=== PATIENT | female | born 1960 | race Caucasian/White ===

== ENCOUNTER 2017-05-07 14:18 | Emergency (ER) | payer BC ==
--- NOTE | 2017-05-07 15:20 | EDM.PDOC ---
ED HPI GENERAL MEDICAL PROBLEM - General Chief Complaint: Cardiovascular Problem Stated Complaint: FEELS FAINT AND LIKE HEART IS RACING Time Seen by Provider: 05/07/17 15:12 Source of Information: Reports: Patient, Family () History Limitations: Reports: No Limitations - History of Present Illness INITIAL COMMENTS - FREE TEXT/NARRATIVE: The patient states that she has had the sensation of intermittent heart racing and dyspnea for over a month. The symptoms recurred again today around 10:00, and did not resolve until after she arrived at the ED. Around 13:30, she developed lightheadedness and feeling clammy and hot. She also reports having bilateral hand tingling today, but denies facial tingling, throat tightness, difficulty swallowing, chest pain, abdominal pain, or the feeling of walking on rubber legs. Here in the ED, it is noted that the patient's oxygen saturation is 100% on room air. The patient does not have a PCP. Her last general physical exam was about 3-4 years ago. - Related Data Allergies Allergy/AdvReac Type Severity Reaction Status Date / Time No Known Allergies Allergy Verified 05/07/17 14:30 Home Meds: Home Meds . [No Known Home Meds] 05/07/17 [History] Past Medical History - Past Surgical History HEENT Surgical History: Reports: Oral Surgery ([place] teeth extraction) Female Surgical History: Reports: D&C (x 1), Hysterectomy, Other (See Below) (Post-hysterectomy bladder repair) Social & Family History - Tobacco Use Smoking Status *Q: Never Smoker - Alcohol Use Alcohol Use History: Yes Alcohol Use Frequency: Socially - Recreational Drug Use Recreational Drug Use: No - Living Situation & Occupation Living situation: Reports: , with Spouse Occupation: Employed (supervisor laundry) ED ROS GENERAL - Review of Systems Review Of Systems: ROS reveals no pertinent complaints other than HPI. ED EXAM, GENERAL - Physical Exam Exam: See Below Exam Limited By: No Limitations General Appearance: Alert, WD/WN, No Apparent Distress Eye Exam: Bilateral Eye: Normal Inspection Ears: Normal External Exam, Hearing Grossly Normal Nose: Normal Inspection, No Blood Throat/Mouth: Normal Inspection, Normal Lips, Normal Voice, No Airway Compromise Head: Atraumatic, Normocephalic Neck: Normal Inspection, Full Range of Motion Respiratory/Chest: No Respiratory Distress, Lungs Clear, Normal Breath Sounds, No Accessory Muscle Use Cardiovascular: Normal Peripheral Pulses, Regular Rate, Rhythm, No Gallop, No JVD, No Murmur, No Rub Peripheral Pulses: 4+: Radial (L), Radial (R) GI/Abdominal: Normal Bowel Sounds, Soft, Non-Tender, No Organomegaly, No Distention, No Abnormal Bruit, No Mass (Female) Exam: Deferred Rectal (Female) Exam: Deferred Back Exam: Normal Inspection, Full Range of Motion, NT Extremities: Normal Inspection, Normal Range of Motion, No Pedal Edema, Normal Capillary Refill Neurological: Alert, Oriented, Normal Cognition, No Motor/Sensory Deficits Psychiatric: Normal Affect, Anxious Skin Exam: Warm, Dry, Intact, Normal Color, No Rash EKG INTERPRETATION EKG Date: 05/07/17 Time: 14:31 Rhythm: NSR Rate (Beats/Min): 93 [place]: Normal P-Wave: Present QRS: Normal ST-T: Normal QT: Normal Comparison: NA - No Prior EKG Course - Vital Signs Last Recorded V/S: Last Vital Signs Temp 36.5 C 05/07/17 14:31 Pulse 94 05/07/17 14:31 Resp 20 05/07/17 14:31 BP 137/98 H 05/07/17 14:31 Pulse Ox 100 05/07/17 14:31 Orthostatic Blood Pressure [ 135/89 Sitting] Orthostatic Blood Pressure [ 128/83 Standing] Orthostatic Blood Pressure [ 135/83 Supine] - Orders/Labs/Meds Labs: Laboratory Tests 05/07/17 05/07/17 05/07/17 Range/Units 14:30 14:30 14:30 WBC 9.13 (3.98-10.04) K/mm3 RBC 5.37 H (3.98-5.22) M/mm3 Hgb 15.7 (11.2-15.7) gm/L Hct 47.0 H (34.1-44.9) % MCV 87.5 (79.4-94.8) fl MCH 29.2 (25.6-32.2) pg MCHC 33.4 (32.2-35.5) g/dl RDW Std Deviation 42.9 (36.4-46.3) fL Plt Count 301 (182-369) K/mm3 MPV 11.0 (9.4-12.3) fl Neutrophils % (Manual) 60 (40-60) % Band Neutrophils % 0 (0-10) % Lymphocytes % (Manual) 35 (20-40) % Atypical Lymphs % 0 % Monocytes % (Manual) 4 (2-10) % Eosinophils % (Manual) 0 L (0.7-5.8) % Basophils % (Manual) 1 (0.1-1.2) Platelet Estimate Adequate Plt Morphology Comment Normal RBC Morph Comment Normal PT 9.9 (8.0-13.0) SECONDS INR 0.93 APTT 29 (22-36) SECONDS D-Dimer, Quantitative 0.25 (0.19-0.59) mg/L Puncture Site ABG pH (7.35-7.45) ABG pCO2 (35.0-45.0) mmHg ABG pO2 (80.0-100.0) mmHg ABG HCO3 (22.0-26.0) meq/L ABG O2 Saturation (96.0-97.0) % ABG Base Excess (-2-2.0) Neeraj Test A-a Gradient mmHg O2 Delivery Device FiO2 (21.00-100.00) % Sodium 142 (136-145) mEq/L Potassium 3.5 (3.5-5.1) mEq/L Chloride 102 (98-107) mEq/L Carbon Dioxide 26 (21-32) mEq/L Anion Gap 17.5 H (5-15) BUN 13 (7-18) mg/dL Creatinine 0.9 (0.55-1.02) mg/dL Est Cr Clr Drug Dosing 70.41 mL/min Estimated GFR (MDRD) > 60 (>60) mL/min BUN/Creatinine Ratio 14.4 (14-18) Glucose 100 (74-106) mg/dL Calcium 10.6 H (8.5-10.1) mg/dL Magnesium 1.9 (1.8-2.4) mg/dl Total Bilirubin 0.5 (0.2-1.0) mg/dL AST 24 (15-37) U/L ALT 38 (14-59) U/L Alkaline Phosphatase 101 (46-116) U/L Troponin I < 0.017 (0.00-0.056) ng/mL NT-Pro-B Natriuret Pep (0-125) pg/mL Total Protein 8.6 H (6.4-8.2) g/dl Albumin 4.6 (3.4-5.0) g/dl Globulin 4.0 gm/dL Albumin/Globulin Ratio 1.2 (1-2) TSH 3rd Generation 5.203 H (0.358-3.74) uIU/mL Urine Color (Yellow) Urine Appearance (Clear) Urine pH (5.0-8.0) Ur Specific [place] (1.005-1.030) Urine Protein (Negative) Urine Glucose (UA) (Negative) Urine Ketones (Negative) Urine Occult Blood (Negative) Urine Nitrite (Negative) Urine Bilirubin (Negative) Urine Urobilinogen (0.2-1.0) Ur Leukocyte Esterase (Negative) Urine RBC (0-5) /hpf Urine WBC (0-5) /hpf Ur Epithelial Cells (0-5) /hpf Urine Bacteria (FEW) /hpf Urine Mucus (FEW) /hpf 05/07/17 05/07/17 05/07/17 Range/Units 14:30 16:22 17:10 WBC (3.98-10.04) K/mm3 RBC (3.98-5.22) M/mm3 Hgb (11.2-15.7) gm/L Hct (34.1-44.9) % MCV (79.4-94.8) fl MCH (25.6-32.2) pg MCHC (32.2-35.5) g/dl RDW Std Deviation (36.4-46.3) fL Plt Count (182-369) K/mm3 MPV (9.4-12.3) fl Neutrophils % (Manual) (40-60) % Band Neutrophils % (0-10) % Lymphocytes % (Manual) (20-40) % Atypical Lymphs % % Monocytes % (Manual) (2-10) % Eosinophils % (Manual) (0.7-5.8) % Basophils % (Manual) (0.1-1.2) Platelet Estimate Plt Morphology Comment RBC Morph Comment PT (8.0-13.0) SECONDS INR APTT (22-36) SECONDS D-Dimer, Quantitative (0.19-0.59) mg/L Puncture Site Lt radial ABG pH 7.49 H (7.35-7.45) ABG pCO2 29.4 L (35.0-45.0) mmHg ABG pO2 95.0 (80.0-100.0) mmHg ABG HCO3 22.2 (22.0-26.0) meq/L ABG O2 Saturation 96.3 (96.0-97.0) % ABG Base Excess 0.4 (-2-2.0) Neeraj Test Positive A-a Gradient 3 mmHg O2 Delivery Device Room air FiO2 21.00 (21.00-100.00) % Sodium (136-145) mEq/L Potassium (3.5-5.1) mEq/L Chloride (98-107) mEq/L Carbon Dioxide (21-32) mEq/L Anion Gap (5-15) BUN (7-18) mg/dL Creatinine (0.55-1.02) mg/dL Est Cr Clr Drug Dosing mL/min Estimated GFR (MDRD) (>60) mL/min BUN/Creatinine Ratio (14-18) Glucose (74-106) mg/dL Calcium (8.5-10.1) mg/dL Magnesium (1.8-2.4) mg/dl Total Bilirubin (0.2-1.0) mg/dL AST (15-37) U/L ALT (14-59) U/L Alkaline Phosphatase (46-116) U/L Troponin I (0.00-0.056) ng/mL NT-Pro-B Natriuret Pep 150 H (0-125) pg/mL Total Protein (6.4-8.2) g/dl Albumin (3.4-5.0) g/dl Globulin gm/dL Albumin/Globulin Ratio (1-2) TSH 3rd Generation (0.358-3.74) uIU/mL Urine Color Light yellow (Yellow) Urine Appearance Clear (Clear) Urine pH 7.0 (5.0-8.0) Ur Specific [place] 1.020 (1.005-1.030) Urine Protein Negative (Negative) Urine Glucose (UA) Negative (Negative) Urine Ketones Negative (Negative) Urine Occult Blood 2+ H (Negative) Urine Nitrite Negative (Negative) Urine Bilirubin Negative (Negative) Urine Urobilinogen 0.2 (0.2-1.0) Ur Leukocyte Esterase Trace H (Negative) Urine RBC 0-5 (0-5) /hpf Urine WBC 0-5 (0-5) /hpf Ur Epithelial Cells 0-5 (0-5) /hpf Urine Bacteria Few (FEW) /hpf Urine Mucus Not seen (FEW) /hpf Meds: Medications Discontinued Medications Generic Name Dose Route Start Last Admin Trade Name Nadine PRN Reason Stop Dose Admin Sodium Chloride 1,000 mls @ 999 mls/hr 05/07/17 16:28 05/07/17 16:54 Normal Saline IV 05/07/17 17:28 999 mls/hr ONETIME ONE Administration - Re-Assessments/Exams Free Text/Narrative Re-Assessment/Exam: 05/07/17 16:14 Two-view chest radiograph appears to be grossly normal. Cardiac silhouette is within normal limits. No pulmonary vascular congestion. No pleural effusions. No focal infiltrate. No pneumothorax. Formal read per the Radiologist pending. 05/07/17 16:29 The patient is orthostatic. I have ordered 1 L normal saline bolus, to be followed by repeat orthostatics. 05/07/17 17:10 Following 1 L NS, the patient is no longer orthostatic. 05/07/17 17:56 Test results discussed with the patient and her . Today's workup finds that she was significantly hyperventilating, most likely due to anxiety, as other known causes of hyperventilation were excluded. In addition, the patient was found to be orthostatic, which is likely responsible for her lightheadedness , but would not be responsible for the other symptoms that she was experiencing. I recommended that if her symptoms persist, that she follow-up with a PCP to discuss treatment options for anxiety. Additionally, the patient's TSH was found to be mildly elevated, suggesting hypothyroidism. I'm also recommending follow-up in this regard, as well. Departure - Departure Time of Disposition: 17:57 Disposition: Home, Self-Care 01 Condition: Good Clinical Impression: Hyperventilation syndrome, Elevated TSH - Discharge Information Instructions: Hyperventilation Referrals: PCP,None [Primary Care Provider] - Mayela Dee MD [Physician] - Forms: ED Department Discharge Additional Instructions: You were seen in the emergency room for palpitations, lightheadedness, shortness of breath, and hand tingling. Workup in the ER included blood work, an arterial blood gas, a urinalysis, an ECG, a chest x-ray, and positional blood pressure checks. Your heart rate alfa excessively when you stood up, indicating that you were dry. This is likely why you were feeling lightheaded. You were given IV fluid, and this was corrected. Your workup also showed that you were significantly hyperventilating. This is usually caused by anxiety, although can be caused by a variety of medical conditions including metabolic acidosis, hypocalcemia, hypoglycemia, hyperthyroidism, liver failure, severe anemia, sepsis, acute coronary event, pneumothorax, pneumonia, dysrhythmia, PE, and CHF. These have been ruled out. If you continue to have palpitations, shortness of breath, and hand tingling, we recommend that you follow-up with your choice of physician or Dr. Mayela Dee, to discuss treatment options for anxiety. Your TSH (thyroid-stimulating hormone) was found to be mildly elevated, suggesting that you might be hypothyroid. We also recommend that you follow-up in this regard. If any other problems, please do not hesitate to return to the ER.
[2017-05-07] MEDS ORDERED: Sodium Chloride 0.9% 1,000 ML IV ONE (16:28)
--- NOTE | 2017-05-08 07:26 | CR ---
Chest: Two views of the chest were obtained. Comparison: Prior chest x-ray of 07/03/16. Heart size and mediastinum are normal. Lungs are clear. Bony structures are within normal limits for the patient's age. Impression: 1. Nothing acute is identified on two-view chest x-ray. Diagnostic code #1
== END 2017-05-07 18:21 | disposition home or self-care (01) ==
LOC: JD.ED 14:18
DX: F45.8 Other somatoform disorders (principal); R79.89 Other specified abnormal findings of blood chemistry
CPT/HCPCS: 36415; 36600; 71046; 80053; 81001; 82803; 83735; 83880; 84443; 84484; 85025; 85379; 85610; 85730; 93005; 99285; J7040; 93010; 99284-25

== ENCOUNTER 2017-06-25 10:29 | Day surgery (SDC) | payer BC ==
[~2017-06-25 10:29] MED LIST: Lactated Ringers 1,000 ML IV SCH; Lidocaine 1%/Sod Bicarbonate in NS 8.4% 1 ML Syringe IDERM PRN; Sodium Chloride 0.9% 10 ML Syringe FLUSH PRN
--- NOTE | 2017-06-25 11:07 | PCM.PREANE ---
Preanesthetic Assessment - Procedure Proposed Procedure: screening colonoscopy - Anesthesia/Transfusion/Family Hx Anesthesia History: Prior Anesthesia Without Reaction Family History of Anesthesia Reaction: No Transfusion History: No Prior Transfusion(s) - Review of Systems General: No Symptoms Pulmonary: No Symptoms Cardiovascular: No Symptoms Gastrointestinal: No Symptoms Neurological: No Symptoms Other: Reports: None, Anxiety (had anxiety attack in past) - Physical Assessment NPO Status Date: 06/24/17 NPO Status Time: 23:00 Pulse: 60 O2 Sat by Pulse Oximetry: 98 Respiratory Rate: 20 Blood Pressure: 117/75 Temperature: 98.5 F Height: 5 ft 7 in Weight: 75 kg ASA Class: 2 Mental Status: Alert & Oriented x3 Airway Class: Mallampati = 1 Dentition: Reports: Normal Dentition Thyro-Mental Finger Breadths: 3 Mouth Opening Finger Breadths: 3 ROM/Head Extension: Full Lungs: Clear to Auscultation, Normal Respiratory Effort Cardiovascular: Regular Rate, Regular Rhythm - Allergies Allergies/Adverse Reactions: Allergies Allergy/AdvReac Type Severity Reaction Status Date / Time No Known Allergies Allergy Verified 06/22/17 10:19 - Blood Blood Available: No - Acknowledgements Anesthesia Type Planned: MAC Pt an Appropriate Candidate for the Planned Anesthesia: Yes Alternatives and Risks of Anesthesia Discussed w Pt/Guardian: Yes Pt/Guardian Understands and Agrees with Anesthesia Plan: Yes PreAnesthesia Questionnaire - Past Health History Medical/Surgical History: Denies Medical/Surgical History HEENT History: Reports: Otitis Media Cardiovascular History: Reports: High Cholesterol Respiratory History: Reports: None Gastrointestinal History: Reports: None DIRECTOR DENT[employer] SERVICES History: Reports: Spontaneous , Other (See Below) Other OB/BYN History: menopausal, bladder repair Musculoskeletal History: Reports: Other (See Below) Other Musculoskeletal History: body aches bachache Neurological History: Reports: None Psychiatric History: Reports: Other (See Below) Other Psychiatric History: fatigue Endocrine/Metabolic History: Reports: Vitamin D Deficiency Hematologic History: Reports: Other (See Below) Other Hematologic History: hypercalcemia Immunologic History: Reports: None Oncologic (Cancer) History: Reports: None Dermatologic History: Reports: None - Past Surgical History Head Surgeries/Procedures: Reports: None HEENT Surgical History: Reports: Oral Surgery Cardiovascular Surgical History: Reports: None Respiratory Surgical History: Reports: None GI Surgical History: Reports: None Female Surgical History: Reports: D&C, Hysterectomy, Other (See Below) ( bladder repair) Endocrine Surgical History: Reports: None Neurological Surgical History: Reports: None Oncologic Surgical History: Reports: None - SUBSTANCE USE Smoking Status *Q: Never Smoker Tobacco Use Within Last Twelve Months: No Second Hand Smoke Exposure: No Days Per Week of Alcohol Use: 0 Recreational Drug Use History: No - HOME MEDS Home Medications: Home Meds Ergocalciferol (Vitamin D2) [Vitamin D2] 50,000 unit PO SUWE 06/22/17 [History] - CURRENT (IN HOUSE) MEDS Current Meds: Current Medications Lactated Ringer's (Ringers, Lactated) 1,000 mls @ 125 mls/hr IV ASDIRECTED BRIANNA Stop: 06/25/17 23:00 Lidocaine/Sodium Bicarbonate (Buffered Lidocaine 1% In Ns 8.4%) 0.25 ml IDERM ONETIME PRN PRN Reason: Prior to IV Start Stop: 06/25/17 18:00 Sodium Chloride (Saline Flush) 10 ml FLUSH ASDIRECTED PRN PRN Reason: Keep Vein Open Stop: 06/25/17 18:00
[2017-06-25] MEDS ORDERED: Lidocaine 1% 2 ML ONE ×2 (11:39)
[2017-06-25] MEDS ORDERED: Propofol 200 MG/20 ML SDV ONE ×2 (11:39→12:56)
[2017-06-25] MEDS ORDERED: fentaNYL 100 MCG/2 ML SDV ONE (12:44)
--- NOTE | 2017-06-25 13:18 | PCM48HPAN ---
Post Anesthesia Note - EVALUATION WITHIN 48HRS OF ANESTHETIC Vital Signs in Normal Range: Yes Patient Participated in Evaluation: Yes Respiratory Function Stable: Yes Airway Patent: Yes Cardiovascular Function Stable: Yes Hydration Status Stable: Yes Pain Control Satisfactory: Yes Nausea and Vomiting Control Satisfactory: Yes Mental Status Recovered: Yes Pulse Rate: 75 SaO2: 98 Resp Rate: 16 Temperature: 97.7 F Blood Pressure: 110/70
--- NOTE | 2017-06-26 07:35 | PCM.OPNOTE ---
- General Post-Op/Procedure Note Date of Surgery/Procedure: 06/25/17 Operative Procedure(s): Colonoscopy with sigmoid cold forceps polypectomy Findings: 1. Sigmoid diverticulosis 2. Diminutive sigmoid polyp Pre Op Diagnosis: Screening colonoscopy Post-Op Diagnosis: 1. Sigmoid diverticulosis. 2. Diminutive sigmoid polyp Anesthesia Technique: MAC, Moderate Sedation Primary Surgeon: Harjinder Gipson Pathology: Sigmoid polyp which was less than 5 mm in diameter. EBL in mLs: 0 Complications: None Condition: Good Free Text/Narrative:: After adequate IV sedation and analgesia was obtained with monitoring the patient was placed on her left side. Perianal inspection and digital rectal examination were performed next and were unremarkable. A lubricated colonoscope was inserted into the rectum and advanced under direct vision with abdominal pressure to reach to cecum. The bowel preparation was excellent. The cecum ascending colon transverse colon and descending colons were endoscopically normal with no mass lesions or inflammatory changes seen. The sigmoid had a few small to moderate sized diverticuli and one diminutive polyp in its distal aspect. The polyp was removed with cold forceps and the specimen was retrieved. The polypectomy site was hemostatic. The rectum in both views was normal. Air was removed as I finished the procedure. Suspender Cutter photographs were taken for the patient and for the medical record.
== END 2017-06-25 13:57 | disposition home or self-care (01) ==
LOC: JD.SDS 10:29
PROVIDERS: ATTEND Surgery
DX: Z12.11 Encounter for screening for malignant neoplasm of colon (principal); K63.5 Polyp of colon; K57.30 Diverticulosis of large intestine without perforation or abscess without bleeding; E55.9 Vitamin D deficiency, unspecified; E78.5 Hyperlipidemia, unspecified; Z79.899 Other long term (current) drug therapy
CPT/HCPCS: 45380; 88305; J2001; J3010; J7120; 00812; J2704